=== PATIENT | male | born 2000 | race African-American/Black ===

== ENCOUNTER 2019-01-29 12:36 | Emergency (ER) | payer OTHER ==
[2019-01-29 12:52] VITALS: BP 141/71
--- NOTE | 2019-01-29 13:53 | XRAY Report ---
Reason: chest pain Procedure Date: 01/29/2019 Accession Number: [id number] / [id number] Procedure: XR - Chest 2 View X-Ray CPT Code: 02561 FULL RESULT: EXAM: CHEST RADIOGRAPHY EXAM DATE: 01/29/2019 01:36 PM. CLINICAL HISTORY: Chest pain. COMPARISON: None. TECHNIQUE: 2 views. FINDINGS: Lungs/Pleura: No focal opacities evident. No pleural effusion. No pneumothorax. Normal volumes. Mediastinum: Heart and mediastinal contours are unremarkable. Other: None. IMPRESSION: No focal consolidation. RADIA
[2019-01-29] MEDS ORDERED: DEXAMETHASONE 10 MG/ML VIAL PO STA (13:57)
[2019-01-29] MEDS ORDERED: ALBUTEROL NEB 2.5 MG/3 ML INH STA (13:57)
[2019-01-29] MEDS ORDERED: CHERRY SYRUP 10 ML UDC PO ONE (14:11)
--- NOTE | 2019-01-29 14:16 | ED Physician Documentation ---
PD HPI DYSPNEA - Stated complaint Stated Complaint: SOA CHEST PX - Chief complaint Chief Complaint: Cardiac - History obtained from History obtained from: Patient - History of Present Illness Timing - onset: How many days ago (3) Timing - onset during: Rest Timing - duration: Days (3) Timing - details: Gradual onset Pain level max: 0 Pain level now: 0 Improved by: Rest Worsened by: Exertion Associated symptoms: Wheezing, Chest pain / discomfort (tightness). No: Fever, Cough, Hemoptysis, Palpitations, Diaphoresis, Bilateral edema, Unilateral edema Similar symptoms before: Diagnosis (has used inhalers in the past. none now) Recently seen: Not recently seen Review of Systems Constitutional: denies: Fever, Chills Nose: denies: Rhinorrhea / runny nose, Congestion Throat: denies: Sore throat Cardiac: denies: Chest pain / pressure Respiratory: reports: Dyspnea, Wheezing. denies: Cough GI: denies: Nausea, Vomiting, Diarrhea Skin: reports: Abrasion (s). denies: Rash Musculoskeletal: denies: Neck pain, Back pain Neurologic: denies: Headache PD PAST MEDICAL HISTORY - Past Medical History Past Medical History: No - Past Surgical History Past Surgical History: No - Present Medications Home Medications: Ambulatory Orders Medication Instructions Recorded Confirmed Albuterol Sulf [Ventolin Hfa 1 - 2 puffs INH Q4HR PRN #1 inhaler 01/29/19 Inhaler] - Allergies Allergies/Adverse Reactions: Allergies Allergy/AdvReac Type Severity Reaction Status Date / Time hydrocodone AdvReac Unknown Verified 01/29/19 12:52 - Living Situation Living Arrangement: reports: At home - Social History Does the pt smoke?: No Does the pt have substance abuse?: No - Family History Family history: reports: Non contributory - Immunizations Immunizations are current?: Yes PD ED PE NORMAL - Vitals Vital signs reviewed: Yes - General General: Alert and oriented X 3, No acute distress, Well developed/nourished - HEENT HEENT: PERRL, Moist mucous membranes - Neck Neck: Supple, no meningeal sign - Cardiac Cardiac: RRR, Strong equal pulses - Respiratory Respiratory: No respiratory distress, Other (Diminished breath sounds and wheezing bilaterally) - Abdomen Abdomen: Soft, Non tender, Non distended - Derm Derm: Warm and dry - Extremities Extremities: No edema, No calf tenderness / cord - Neuro Neuro: Alert and oriented X 3 - Psych Psych: Normal mood, Normal affect Results - Vitals Vitals: Vital Signs - 24 hr 01/29/19 01/29/19 12:45 14:07 Temperature 36.5 C Heart Rate 72 60 Respiratory 18 14 Rate Blood Pressure 141/71 H O2 Saturation 100 Oxygen O2 Source Room air - EKG (time done) 1250 Rate: Rate (enter#) (76) Rhythm: NSR [place]: Normal Intervals: Normal [place] QRS: Normal Ischemia: ST elevation c/w repol - Rads (name of study) cxr Radiology: Prelim report reviewed, EMP read contemporaneously, See rad report (No focal consolidation. ) PD MEDICAL DECISION MAKING - ED course Complexity details: reviewed results, re-evaluated patient, considered differential, d/w patient ED course: Patient feels much better after albuterol treatment. Lungs are clear to auscultation bilaterally. No hypoxia. No history distress. Will follow up with his PCP for further care. Patient counseled regarding signs and symptoms for which I believe and urgent re-evaluation would be necessary. Patient with good understanding of and agreement to plan and is comfortable going home at this time This document was made in part using voice recognition software. While efforts are made to proofread this document, sound alike and grammatical errors may occur. Departure - Departure Disposition: 01 Home, Self Care Clinical Impression: Asthma attack Qualifiers: Asthma severity: unspecified severity Asthma persistence: unspecified Qualified Code(s): J45.901 - Unspecified asthma with (acute) exacerbation Condition: Good Instructions: ED Reactive Airway Disease Follow-Up: your,doctor in 1 week [Other] Prescriptions: Albuterol Sulf [Ventolin Hfa Inhaler] 1 - 2 puffs INH Q4HR PRN #1 inhaler PRN Reason: Shortness Of Air/Wheezing Comments: Use inhaler as prescribed. Return if you worsen. Follow-up with your doctor for further care. Discharge Date/Time: 01/29/19 14:38
== END 2019-01-29 14:38 | disposition home or self-care (01) ==
LOC: ED 12:36
DX: J45.901 Unspecified asthma with (acute) exacerbation (principal)
CPT/HCPCS: 71046; 93005; 94640; 99283; 99284; A9270